=== PATIENT | male | born 1975 | race Caucasian/White ===

== ENCOUNTER 2023-09-10 17:34 | Observation (INO) | payer SELFPAY ==
[2023-09-10 18:33] LABS: BASO % 0.3 % (0-2.0); EOS % 0.1 % (0-4.5); HEMATOCRIT 37.4 % (35.4-49); HEMOGLOBIN 12.2 GM/dL (11.7-16.9); LYMPH % 14.1 % (8-40); MCH 23.6 pg (25.7-33.7); MCHC 32.6 g/dl (32.0-35.9); MEAN CELL VOLUME 72.4 fl (80-96); MEAN PLT VOLUME 7.6 fl (7.5-11.1); MONO % 9.6 % (3.8-10.2); NEUT % 75.9 % (42.8-82.8); PLATELET COUNT 205 10^3/uL (134-434); RBC 5.17 M/mm3 (4.00-5.60); RDW 17.5 % (11.9-15.9); WHITE BLOOD COUNT 5.2 K/mm3 (4.0-10.0)
[2023-09-10] MEDS ORDERED: diazePAM 5 MG TABLET ONE (18:38)
[2023-09-10] MEDS ORDERED: PANTOPRAZOLE SODIUM 40 MG VIAL ONE (18:39)
[2023-09-10] MEDS: diazePAM 5 MG TABLET PO ONE (18:44)
[2023-09-10] MEDS: PANTOPRAZOLE SODIUM 40 MG VIAL IVPUSH ONE (18:44)
[2023-09-10 18:47] LABS: POTASSIUM 3.6 mmol/L (3.5-5.1)
[2023-09-10 18:50] LABS: BLOOD UREA NITROGEN 4.7 mg/dL (7-18); CALCIUM 8.9 mg/dL (8.5-10.1)
[2023-09-10 18:51] LABS: ALBUMIN 3.6 g/dl (3.4-5.0)
[2023-09-10 18:53] LABS: CREATININE 0.9 mg/dL (0.55-1.3)
[2023-09-10 18:55] LABS: BILIRUBIN,TOTAL 0.6 mg/dL (0.2-1); TOT PROT 7.6 g/dl (6.4-8.2)
[2023-09-10] MEDS: SODIUM CHLORIDE 0.9% 500 ML INFUS.BAG IV ONE (19:35)
[2023-09-11 02:47] VITALS: BMI 24.0
[2023-09-11 03:46] VITALS: RESP 18
[2023-09-11 09:19] LABS: BASO % 0.5 % (0-2.0); EOS % 0.3 % (0-4.5); HEMATOCRIT 39.7 % (35.4-49); HEMOGLOBIN 12.6 GM/dL (11.7-16.9); LYMPH % 17.8 % (8-40); MCH 23.6 pg (25.7-33.7); MCHC 31.8 g/dl (32.0-35.9); MEAN PLT VOLUME 7.8 fl (7.5-11.1); MONO % 11.5 % (3.8-10.2); NEUT % 69.9 % (42.8-82.8); PLATELET COUNT 224 10^3/uL (134-434); RBC 5.37 M/mm3 (4.00-5.60); RDW 17.6 % (11.9-15.9); WHITE BLOOD COUNT 5.7 K/mm3 (4.0-10.0)
[2023-09-11 09:22] LABS: POTASSIUM 3.6 mmol/L (3.5-5.1)
[2023-09-11 09:28] LABS: CALCIUM 8.9 mg/dL (8.5-10.1)
[2023-09-11 09:29] LABS: ALBUMIN 3.7 g/dl (3.4-5.0); BLOOD UREA NITROGEN 8.6 mg/dL (7-18); MAGNESIUM 2.3 mg/dL (1.8-2.4)
[2023-09-11 09:30] LABS: PHOSPHOROUS 3.1 mg/dL (2.5-4.9)
[2023-09-11 09:31] LABS: TOT PROT 7.8 g/dl (6.4-8.2)
[2023-09-11 09:32] LABS: CREATININE 0.7 mg/dL (0.55-1.3)
[2023-09-11] MEDS: INSULIN (NOVOLOG) ASPART 100 UNITS/ML 10ML VIAL SQ SCH (09:47)
[2023-09-11] MEDS: ENOXAPARIN NA (PORCINE) 40 MG/0.4 ML DISP.SYRIN SQ SCH (09:49)
[2023-09-11] MEDS: MULTIVITAMINS (DAILY MVI) TABLET (FP) PO SCH (12:40)
[2023-09-11] MEDS: INSULIN (LEVEMIR) 100 UNITS/ML UNITS SQ SCH (12:40)
[2023-09-11] MEDS: THIAMINE HCL 100 MG TABLET (FP) PO SCH (12:40)
[2023-09-11] MEDS: FOLIC ACID 1 MG TABLET (FP) PO SCH (12:40)
[2023-09-11] MEDS: SODIUM CHLORIDE 1,000 ML IV SCH (13:20)
[2023-09-11 16:15] LABS: URINE APPEARANCE CLEAR; URINE BILIRUBIN NEGATIVE (NEGATIVE); URINE COLOR YELLOW; URINE GLUCOSE (UA) 3+ (NEGATIVE); URINE KETONE 1+ (NEGATIVE); URINE LEUK ESTERASE NEGATIVE (NEGATIVE); URINE NITRITE NEGATIVE (NEGATIVE); URINE PROTEIN NEGATIVE (NEGATIVE); URINE UROBILINOGEN 0.2 mg/dL (0.2-1.0)
[2023-09-11] MEDS ORDERED: INSULIN (LEVEMIR) 100 UNITS/ML UNITS SQ SCH (22:00)
[2023-09-12 09:38] LABS: HEMATOCRIT 41.5 % (35.4-49); HEMOGLOBIN 13.6 GM/dL (11.7-16.9); MCH 24.1 pg (25.7-33.7); MCHC 32.7 g/dl (32.0-35.9); MEAN CELL VOLUME 73.7 fl (80-96); MEAN PLT VOLUME 7.6 fl (7.5-11.1); PLATELET COUNT 247 10^3/uL (134-434); RBC 5.62 M/mm3 (4.00-5.60); WHITE BLOOD COUNT 5.4 K/mm3 (4.0-10.0)
[2023-09-12 09:55] LABS: POTASSIUM 3.3 mmol/L (3.5-5.1)
[2023-09-12 10:03] LABS: BLOOD UREA NITROGEN 13.2 mg/dL (7-18); CALCIUM 9.5 mg/dL (8.5-10.1)
[2023-09-12 10:04] LABS: ALBUMIN 3.6 g/dl (3.4-5.0)
[2023-09-12 10:06] LABS: CREATININE 0.7 mg/dL (0.55-1.3)
[2023-09-12 10:07] LABS: BILIRUBIN,TOTAL 0.8 mg/dL (0.2-1); TOT PROT 7.9 g/dl (6.4-8.2)
[2023-09-12 10:50] LABS: ANISOCYTOSIS 0; HELMET CELLS 0; HOWELL-JOLLY BODIES 0; MACROCYTOSIS 0; OVALOCYTE 0; ROULEAU 0; SICKELED CELLS 0; TARGET CELLS 0; TEAR DROP CELLS 0; TOXIC GRANULATION 0
[2023-09-12 11:56] VITALS: BP 148/84; PULSE 109; TEMP 98.3
[2023-09-12] MEDS ORDERED: SODIUM CHLORIDE 0.9%/KCL 20 MEQ/1,000 ML INFUS.BAG IV SCH (13:00)
[2023-09-12] MEDS: INSULIN (LEVEMIR) 100 UNITS/ML UNITS SQ ONE (13:16)
[2023-09-12] MEDS: POTASSIUM CHLORIDE TABS 20 MEQ TABLET.ER (FP) PO ONE (13:16)
== END 2023-09-12 14:07 | disposition home or self-care (01) ==
LOC: JER 17:34 → JERBED 23:35 → J5S 09-11 05:03
PROVIDERS: ADMIT Student in an Organized Health Care Education/Training Program
CPT/HCPCS: 36415; 71045-TC-FY; 76705-TC; 80053; 80307; 81003; 82962; 83690; 83735; 84100; 85025; 93005; 93010; 99285-25; G0378